=== PATIENT | male | born 2005 | race Hispanic/Latino ===

== ENCOUNTER 2024-04-10 10:11 | Emergency (ER) | payer BC ==
[2024-04-10] MEDS ORDERED: NA CHLORIDE 0.9% 1,000 ML ONE (10:50)
[2024-04-10 10:56] LABS: Absolute Basophils 0.1 K/uL (0-0.5); Absolute Eosinophils 0.1 K/uL (0-0.5); Absolute Lymphocytes (CBC) 1.7 K/uL (0.7-4.9); Absolute Monocytes 0.4 K/uL (0.1-1.3); Absolute Neutrophil 4.9 K/uL (1.8-8.0); Basophils % 0.8 % (0-1.3); Eosinophils % 1.3 % (0-4.4); Hematocrit 45.8 % (39.6-49.0); Hemoglobin 15.6 g/dL (13.6-17.9); Lymphocytes % 24.1 % (15.3-44.8); MCH 29.2 pg (27.0-35.0); MCHC 34.1 g/dL (32.0-36.0); MCV 85.8 fL (80-100); MPV 7.4 fL (7.6-11.3); Monocytes % 5.1 % (3.3-12.3); Neutrophils % 68.7 % (41.7-73.7); Platelets 312 thou/uL (152-406); RBC Red Blood Cell Count 5.34 M/uL (4.33-5.43); Red Cell Distribution Width 13.4 % (12.1-15.2)
[2024-04-10] MEDS ORDERED: FAMOTIDINE 20 MG/2 ML VIAL IV ONE (10:58)
[2024-04-10] MEDS ORDERED: ONDANSETRON 4 MG/2 ML VIAL ONE ×2 (10:58→11:26)
[2024-04-10 11:13] LABS: Albumin 4.4 g/dL (3.4-5.0); Albumin/Globulin Ratio 1.3 (1.1-1.8); Anion Gap 8.6 mEq/L (5.0-15.0); Bilirubin Total 0.9 mg/dL (0.2-1.0); Globulin 3.4 g/dL (2.3-3.5); Potassium 3.6 mEq/L (3.5-5.1); Protein, Total 7.8 g/dL (6.4-8.2)
[2024-04-10] MEDS ORDERED: KETOROLAC 30 MG/ML INJ ONE (11:26)
[2024-04-10] MEDS ORDERED: DICYCLOMINE HCL 10 MG CAP ONE (11:47)
[2024-04-10] MEDS ORDERED: PROMETHAZINE INJ 25 MG/ML AMP ONE (12:07)
--- NOTE | 2024-04-10 13:18 | ER ---
Nurse's Notes [facility] Name: Chad Carvajal Age: 19 yrs Sex: Male : 2005 Arrival Date: 04/10/2024 Time: 10:11 Bed 8 Private MD: Diagnosis: Nausea with vomiting, unspecified;Alcohol abuse Presentation: 04/10 10:28 Chief complaint: Patient states: PT reports abd pain and vomiting after drinking last ss night. Coronavirus screen: Client denies travel out of the [place] in the last 14 days. Ebola Screen: Patient denies exposure to infectious person. Patient denies travel to an Ebola-affected area in the 21 days before illness onset. Initial Sepsis Screen: Does the patient meet any 2 criteria? No. Patient's initial sepsis screen is negative. Does the patient have a suspected source of infection? No. Patient's initial sepsis screen is negative. Risk Assessment: Do you want to hurt yourself or someone else? Patient reports no desire to harm self or others. Onset of symptoms was April 09, 2024. 10:28 Method Of Arrival: Ambulatory ss 10:28 Acuity: JONATHAN 3 ss Triage Assessment: 10:30 General: Appears distressed, comfortable, unkempt, Behavior is cooperative, appropriate bp for age, anxious. Pain: Denies pain. EENT: No deficits noted. Neuro: No deficits noted. Cardiovascular: No deficits noted. Respiratory: No deficits noted. GI: Reports nausea, vomiting. : No signs and/or symptoms were reported regarding the genitourinary system. Derm: No deficits noted. Musculoskeletal: No deficits noted. Historical: - Allergies: 10: No Known Allergies; ss - Home Meds: 10: None [Active]; ss - PMHx: 10: None; ss - PSHx: 10:29 None; ss - Immunization history:: Adult Immunizations up to date. - Infectious Disease History:: Denies. - Social history:: Smoking status: Reported history of juuling and/or vaping. Screenin:30 [facility] ED Fall Risk Assessment (Adult) History of falling in the last 3 months, bp including since admission No falls in past 3 months (0 pts) Confusion or Disorientation No (0 pts) Intoxicated or Sedated No (0 pts) Impaired Gait No (0 pts) Mobility Assist Device Used No (0 pt) Altered Elimination No (0 pt) Score/Fall Risk Level 0 - 2 = Low Risk. Abuse screen: Denies threats or abuse. Denies injuries from another. Nutritional screening: No deficits noted. Tuberculosis screening: No symptoms or risk factors identified. Assessment: 10:15 General: Appears in no apparent distress. Behavior is cooperative, appropriate for age, bp anxious. 12:00 Reassessment: No changes from previously documented assessment. Patient is alert, bp oriented x 3, equal unlabored respirations, skin warm/dry/pink. Psych: 13:35 [place] Suicide Severity Screening: In the past month, have you wished you were bp or wished you could go to sleep and not wake up? Patient responds "No." "In the past month, have you actually had any thoughts of killing yourself?" Patient responds "no." "In your lifetime, have you ever done anything, started to do anything, or prepared to do anything to end your life?" Patient responds "no.". Vital Signs: 10:28 BP 144 / 88; Pulse 79; Resp 17; Temp 98.9(TE); Pulse Ox 100% on R/A; Weight 77.11 kg; ss Height 6 ft. 0 in. ; Pain 9/10; 12:00 BP 146 / 77; Pulse 80; Resp 16; Pulse Ox 96% ; bp 13:00 BP 126 / 67; Pulse 61; Resp 16; Pulse Ox 97% ; bp 10:28 Body Mass Index 23.06 (77.11 kg, 182.88 cm) ss 10:28 Pain Scale: Adult ss ED Course: 10:13 Patient arrived in ED. im 10:13 Debra Bill FNP-C is PHCP. kb 10:14 Too Garcia MD is Attending Physician. kb 10:29 Triage completed. ss 10:29 Arm band placed on right wrist. ss 10:30 Kade Locke, RN is Primary Nurse. bp 10:30 Patient has correct armband on for positive identification. bp 10:49 Crystal Pino, ARMINDA is Primary Nurse. jl7 10:53 Inserted saline lock: 20 gauge in right antecubital area, using aseptic technique. am7 Blood collected. Flushed with 10 mL NS. 11:40 Warm blanket given. Verbal reassurance given. am7 13:34 No provider procedures requiring assistance completed. IV discontinued, intact, bp bleeding controlled, No redness/swelling at site. Pressure dressing applied. Administered Medications: 10:30 Drug: Famotidine IVP 20 mg IVP once; dilute with 10 mL 0.9% NaCl; give over 2 minutes bp Route: IVP; Site: right antecubital; 11:49 Follow up: Response: No adverse reaction bp 10:30 Drug: Ondansetron IVP 4 mg IVP once; over 2 minutes Route: IVP; Site: right antecubital;bp 11:49 Follow up: Response: No adverse reaction bp 10:30 Drug: NS 0.9% IV 1000 ml IV at 1 bolus Per protocol; to be given as a bolus over 60 bp minutes Route: IV; Rate: 1 bolus; Site: right antecubital; 11:49 Follow up: IV Status: Completed infusion; IV Intake: 1000ml bp 11:31 Drug: Ondansetron IVP 4 mg IVP once; over 2 minutes Route: IVP; Site: right antecubital;jl7 11:49 Follow up: Response: No adverse reaction bp 11:31 Drug: Ketorolac IVP 15 mg IVP once Route: IVP; Site: right antecubital; jl7 11:49 Follow up: Response: No adverse reaction bp 11:48 Drug: Dicyclomine PO 20 mg PO once Route: PO; bp 11:49 Follow up: Response: No adverse reaction bp 12:10 Drug: Promethazine IVP 12.5 mg IVP once Route: IVP; Site: right antecubital; bp 13:33 Follow up: Response: No adverse reaction bp Medication: 13:36 VIS not applicable for this client. bp Intake: 11:49 IV: 1000ml; Total: 1000ml. bp Outcome: 13:17 Discharge ordered by MD. maldonado 13:34 Discharged to home ambulatory, bp 13:34 Condition: stable 13:34 Discharge instructions given to patient, Instructed on discharge instructions, follow up and referral plans. medication usage, Demonstrated understanding of instructions, follow-up care, medications, Prescriptions given X 1, 13:36 Patient left the ED. bp Signatures: Debra Bill, ARRON DE LA ROSAP-Kelly George RN RN Crystal Pino RN RN jl7 Kade Locke RN RN bp Ellen Jeff Abigail am7
--- NOTE | 2024-04-10 13:18 | EDPHYS ---
Physician Documentation [facility] Name: Chad Carvajal Age: 19 yrs Sex: Male : 2005 Arrival Date: 04/10/2024 Time: 10:11 Bed 8 Private MD: ED Physician Too Garcia HPI: 04/10 10:15 This 19 yrs old Male presents to ER via Unassigned with complaints of ETOH kb Abuse. 10:15 Pt is a 19 year old male who presents for abd pain and vomiting that started this kb morning. Pt states he believes this is alcohol poisoning. Reports drinking ETOH last night. Denies fever, diarrhea. States he does not drink very often. Historical: - Allergies: 10:29 No Known Allergies; ss - Home Meds: 10: None [Active]; ss - PMHx: 10:29 None; ss - PSHx: 10:29 None; ss - Immunization history:: Adult Immunizations up to date. - Infectious Disease History:: Denies. - Social history:: Smoking status: Reported history of juuling and/or vaping. ROS: 10:15 Constitutional: As per HPI kb Exam: 10:16 Constitutional: This is a well developed, well nourished patient who is awake, alert, kb and in no acute distress. Head/Face: Normocephalic, atraumatic. ENT: Moist Mucous membranes Cardiovascular: Regular rate Respiratory: Respirations even and unlabored. No increased work of breathing. Talking in full sentences Abdomen/GI: Soft, non-tender. No distention Skin: Warm, dry with normal turgor. Normal color. MS/ Extremity: Pulses equal, no cyanosis. Neurovascular intact. Full, normal range of motion. Neuro: Awake and alert, GCS 15, oriented to person, place, time, and situation. Vital Signs: 10:28 BP 144 / 88; Pulse 79; Resp 17; Temp 98.9(TE); Pulse Ox 100% on R/A; Weight 77.11 kg; ss Height 6 ft. 0 in. ; Pain 9/10; 12:00 BP 146 / 77; Pulse 80; Resp 16; Pulse Ox 96% ; bp 13:00 BP 126 / 67; Pulse 61; Resp 16; Pulse Ox 97% ; bp 10:28 Body Mass Index 23.06 (77.11 kg, 182.88 cm) ss 10:28 Pain Scale: Adult ss MDM: 10:14 Medical Screening Exam initiated kb 10:16 Data reviewed: vital signs, nurses notes. kb 12:10 Differential diagnosis: abnormal electrolytes, dehydration, etoh abuse. Test considered kb but Not performed: CT: ct considered but pt has no abd tenderness. 04/10 10:17 Order name: CBC with Diff; Complete Time: 11:09 kb 04/10 10:17 Order name: CMP; Complete Time: 11:18 kb 04/10 10:17 Order name: Lipase; Complete Time: 11:18 kb 04/10 10:17 Order name: IV Saline Lock; Complete Time: 10:52 kb 04/10 10:17 Order name: Labs collected and sent; Complete Time: 10:52 kb 04/10 12:56 Order name: PO challenge; Complete Time: 13:33 kb Administered Medications: 10:30 Drug: Famotidine IVP 20 mg IVP once; dilute with 10 mL 0.9% NaCl; give over 2 minutes bp Route: IVP; Site: right antecubital; 11:49 Follow up: Response: No adverse reaction bp 10:30 Drug: Ondansetron IVP 4 mg IVP once; over 2 minutes Route: IVP; Site: right antecubital;bp 11:49 Follow up: Response: No adverse reaction bp 10:30 Drug: NS 0.9% IV 1000 ml IV at 1 bolus Per protocol; to be given as a bolus over 60 bp minutes Route: IV; Rate: 1 bolus; Site: right antecubital; 11:49 Follow up: IV Status: Completed infusion; IV Intake: 1000ml bp 11:31 Drug: Ondansetron IVP 4 mg IVP once; over 2 minutes Route: IVP; Site: right antecubital;jl7 11:49 Follow up: Response: No adverse reaction bp 11:31 Drug: Ketorolac IVP 15 mg IVP once Route: IVP; Site: right antecubital; jl7 11:49 Follow up: Response: No adverse reaction bp 11:48 Drug: Dicyclomine PO 20 mg PO once Route: PO; bp 11:49 Follow up: Response: No adverse reaction bp 12:10 Drug: Promethazine IVP 12.5 mg IVP once Route: IVP; Site: right antecubital; bp 13:33 Follow up: Response: No adverse reaction bp Disposition Summary: 04/10/24 13:17 Discharge Ordered Notes: Location: Home kb Condition: Stable kb Diagnosis - Nausea with vomiting, unspecified kb - Alcohol abuse kb Followup: kb - With: Emergency Department - When: As needed - Reason: Worsening of condition Followup: kb - With: Private Physician - When: 2 - 3 days - Reason: Recheck today's complaints, Continuance of care, Re-evaluation by your physician Discharge Instructions: - Discharge Summary Sheet kb - Nausea and Vomiting, Adult, [id number] kb Forms: - Medication Reconciliation Form kb - Antibiotic Education kb - Prescription Opioid Use kb - Patient Portal Instructions kb - Leadership Thank You Letter kb Prescriptions: - Zofran 4 mg Oral tablet - take 1 tablet ORAL route every 6 hours As needed; 12 tablet; Refills: 0, kb Product Selection Permitted Signatures: Dispatcher [employer] EDDebra Cintron FNP-C FNP-Kelly George, RN RN ss Crystal Pino RN RN jl7 Kade Locke, RN RN bp Corrections: (The following items were deleted from the chart) 10:17 10:17 CBC+H.LAB.BRZ ordered. EDMS EDMS 10:17 10:17 COMPREHENSIVE METABOLIC PANEL+C.LAB.BRZ ordered. EDMS EDMS 10:17 10:17 LIPASE+C.LAB.BRZ ordered. EDMS EDMS 10:17 10:17 Urinalysis+U.LAB.BRZ ordered. EDMS EDMS 10:18 10:15 Pt is a 19 year old male who presents for abd pain and vomiting that started this kb morning. Pt states he believes this is alcohol poisoning. Reports drinking ETOH last night. Denies fever, diarrhea. . kb
[2024-04-10 15:51] VITALS: TEMP 98.9
[2024-04-10 16:02] VITALS: BP 126/67; O2SAT 97
== END 2024-04-10 13:36 | disposition home or self-care (01) ==
LOC: ER 10:11
DX: F10.10 Alcohol abuse, uncomplicated (principal)
CPT/HCPCS: 96361; 85025; 36415; 83690; 80053; 96375; 96374; 99284; J2550; J2405 ×2; J7030